=== PATIENT | female | born 1950 | race Caucasian/White ===

== ENCOUNTER 2017-07-28 11:46 | Outpatient (RCR) | payer MEDICARE, OTHER ==
[~2017-07-28 11:46] MED LIST: ACET-1966 PO; ACET500T68 PO; ALPR-1 PO; ANAS1TAB34 PO; ASPI-1471 PO; CALC-864 PO; CELE-1 PO; CHOL10005 PO; CHOL200074 PO; DEN60I SUBQ; LEVO75TA73 PO; LORA-1455 PO; LORA-636 PO; MULT1CAP59 PO; TRAZ-163 PO
== END 2017-07-31 14:51 | disposition home or self-care (01) ==
LOC: RAON 11:46
PROVIDERS: ATTEND Radiology Radiation Oncology
DX: C50.411 Malignant neoplasm of upper-outer quadrant of right female breast (principal); Z17.0 Estrogen receptor positive status [ER+]; E03.9 Hypothyroidism, unspecified; Z92.3 Personal history of irradiation; Z79.899 Other long term (current) drug therapy; Z87.891 Personal history of nicotine dependence
CPT/HCPCS: 99212

== ENCOUNTER → 2017-08-20 | Outpatient (CLI) | payer MEDICARE, OTHER ==
--- NOTE | 2017-08-20 14:12 | RADIOLOGY IMAGING REPORT ---
FACILITY: [facility] [place] PATIENT NAME: Mary Ann Borja : 1950 MR: [id number] V: [id number] EXAM DATE: ORDERING PHYSICIAN: LUCAS GU TECHNOLOGIST: Location: [facility] [place] Patient: Mary Ann Borja : 1950 Visit/Account:[id number] Date of Sevice: 08/20/2017 DEXA Scan Clinical history: Osteoporosis. Comparison: DEXA scan from 03/22/2015. LUMBAR SPINE: The bone mineral density (BMD) measured from L1-L4 correlates with a Z-score of -1.7 and a T-score of -3.8 which is osteoporosis as defined by the World Health Organization. The corresponding risk of f racture in the lumbar spine is 12-16 times increased compared with a young adult reference population . This value has increased by 3.7 % since the prior study. More than 5% change is considered signif icant. HIP: Bone mineral density (BMD) measured in the LEFT total hip region correlates with a Z-score -0.8 and a T-score of -2.3 which is osteopenia as defined by the World Health Organization. The corresponding risk of fracture in the hip is 46 times increased compared to a young adult reference population. Thi s value has increased by 2.4 % since the prior study. More than 5% change is considered significant. T score left femoral neck -2.1 Bone mineral density (BMD) measured in the Femoral Neck region measures 0.744 g/cm?. IMPRESSION: 1. Lumbar spine: Osteoporosis. There has been 3.7% increase in the bone mineral density since the p revious exam. 2. Left Total Hip: Osteopenia. There has been 2.4% increase in the bone mineral density since the p revious exam. 3. Femoral Neck: Bone Mineral Density is 0.744 g/cm? The next DEXA scan of this patient should include the following sites: L1-L4 and the left hip. FRAX? WHO Fracture Risk Assessment Tool link: <http://www.shef.ac.uk/FRAX/tool.jsp?locationValue=9> PLEASE NOTE: 1) The World Health Organization defines low BMD as follows: T-score Normal > -1 Osteopenia < -1 and > -2.5 Osteoporosis < -2.5 without fractures Established osteoporosis < -2.5 with fractures 2) In general, you may wish to consider: Diagnosis Treatment Follow-up DEXA Normal BMD Prevention 2-3 years Osteopenia Prevention/therapy 1-2 years Osteoporosis Therapy Yearly 3) Fracture risk estimated from the T-score is more accurate for vertebral fractures (often spontane ous) than for hip fractures. Report Dictated By: Sarahi Rader MD at 08/20/2017 2:06 PM Report E-Signed By: Sarahi Rader MD at 08/20/2017 2:08 PM WSN:[email or web address]
--- NOTE | 2017-08-21 13:59 | RADIOLOGY IMAGING REPORT ---
[place] [facility] [place] NAME: JAMES FONSECA : [id number] MR: [id number] V: [id number] EXAM DATE: [id number] ORDERING PHYSICIAN: LUCAS GU TECHNOLOGIST: Jannet Pena PROCEDURE:BILATERAL DIAGNOSTIC DIGITAL MAMMOGRAM WITH CAD ASSISTED INTERPRETATION & 3D TOMOSYNTHESIS COMPARISON:Prior mammograms 09/12/16, 09/12/15, 11/29/14, 10/13/13. INDICATIONS:HX BREAST CA, POSITIVE ESTROGEN RECEPTORS FINDINGS: Moderately dense heterogeneous fibroglandular tissue is seen throughout the breasts. The parenchymal pattern has remained stable allowing for difference in mammographic technique & patient positioning. There is no evidence of malignant appearing mass, malignant appearing calcifications or other secondary sign of malignancy in either breast. DIAGNOSTIC CATEGORY 1--NEGATIVE. RECOMMENDATIONS: ROUTINE MAMMOGRAM AND CLINICAL EVALUATION. IMPRESSION: BIRADS 1: Negative No significant abnormality is seen. Dictated by: Sarahi Rader M.D. on 08/20/2017 at 17:06 Transcribed by: MARIUSZ on 08/21/2017 at 9:42 Approved by: Sarahi Rader M.D. on 08/21/2017 at 13:58 [facility]
== END ==
LOC: MAMO 01:04
PROVIDERS: ATTEND Nurse Practitioner Family
DX: Z13.820 Encounter for screening for osteoporosis (principal); M81.0 Age-related osteoporosis without current pathological fracture; M85.80 Other specified disorders of bone density and structure, unspecified site
CPT/HCPCS: 77066; 77080

== ENCOUNTER 2018-07-28 12:00 | Outpatient (RCR) | payer MEDICARE, OTHER ==
[~2018-07-28 12:00] MED LIST changes: -TRAZ-163 PO; +TRAZ100T31 PO
[2018-07-28] MEDS ORDERED: TRAZ100T31 PO ×2 (12:21→12:49)
[2018-07-28 12:24] VITALS: BP 112/70
[2018-07-28] MEDS ORDERED: POLY17PO25 PO (12:49)
--- NOTE | 2018-07-29 03:22 | ONCOLOGY FOLLOW UP NOTE ---
EVENT DATE: July 28, 2018 CHIEF COMPLAINT/REASON FOR FOLLOWUP Patient is here for breast cancer surveillance. ONCOLOGY DIAGNOSES 1. Grade 2 invasive ductal carcinoma of the right breast, status post lumpectomy and sentinel lymph node procedure. Tumor was initially diagnosed 12/03/14 and was strongly ER positive, 98%; SC positive, 14.7%; HER2 of 2+. 2. Patient previously received radiation therapy to the right breast and supraclavicular fossa to 45 Gy in 25 fractions, with subsequent mixed photon- electron boost to the tumor excision site to 59.4 Gy. Radiation was completed 06/13/15. 3. Patient is on oral anastrazole 1 mg per day, directed by Dr. Núñez. INTERVAL HISTORY Mary Ann was seen for oncology surveillance appointment. Overall, she is doing well. She sees Dr. Acosta in May of each year and Dr. Núñez twice a year. She remains on Prolia directed by [facility]. She last had a mammogram approximately 11 months ago and is scheduled for another mammogram in approximately four weeks. She denies any headaches or new or persistent bone pain. She denies any breast pain. The last mammogram and DEXA scan reports were reviewed from August 2017 at [facility]. MEDICATIONS 1. Anastrazole 1 mg daily. 2. Aspirin 81 mg a day. 3. Calcium with vitamin D. 4. Celebrex 200 mg daily. 5. Trazodone 100 mg at bedtime. 6. MiraLAX daily. 7. Levothyroxine 75 mcg a day. ALLERGIES CODEINE. PAST MEDICAL HISTORY 1. Right breast carcinoma, 2014. 2. Osteoarthritis, 1997. 3. Hypothyroidism, 2005. PAST SURGICAL HISTORY 1. Cholecystectomy, 1999. 2. Tonsillectomy, 1953. SOCIAL HISTORY Nonsmoker. Mother at age 80. Father is alive. REVIEW OF SYSTEMS Comprehensive review of systems notable for occasional constipation and some mild musculoskeletal pain or stiffness. PHYSICAL EXAMINATION GENERAL: A pleasant 68-year-old female of medium build. VITAL SIGNS: Blood pressure 112/70, pulse 82. LYMPHATIC: No lymphadenopathy. LUNGS: Clear bilaterally. CV: Heart sounds regular. ABDOMEN: Soft. No gross organomegaly. BREASTS: Right breast examination reveals no dominant mass, some nonspecific tenderness on deep palpation of the upper outer quadrant only. Left breast exam was entirely benign. No gross organomegaly. NEURO: Intact. IMPRESSION No clinical evidence of breast cancer recurrence. PLAN Return to clinic in one year. I should see her in 13 months, which will be after her mammogram in 2020. I will potentially release her from the radiation oncology clinic at that time, since she is reliable regarding followup with other providers. Overall, I am pleased with her course to date. VLAD
== END 2018-09-18 12:48 | disposition home or self-care (01) ==
LOC: RAON 12:00
PROVIDERS: ATTEND Radiology Radiation Oncology
DX: C50.911 Malignant neoplasm of unspecified site of right female breast (principal); Z17.0 Estrogen receptor positive status [ER+]; Z79.811 Long term (current) use of aromatase inhibitors

== ENCOUNTER → 2018-08-21 | Outpatient (CLI) | payer MEDICARE, OTHER ==
[~2018-08-21] MED LIST changes: +POLY17PO25 PO
--- NOTE | 2018-08-25 10:08 | RADIOLOGY IMAGING REPORT ---
FACILITY: [facility] - [place] PATIENT NAME: JAMES FONSECA : [id number] MR: [id number] V: [id number] EXAM DATE: [id number] ORDERING PHYSICIAN: GAY GRAHAM TECHNOLOGIST: Ally Alan PROCEDURE:BILATERAL DIGITAL SCREENING MAMMOGRAM WITH CAD ASSISTED INTERPRETATION & 3D TOMOSYNTHESIS COMPARISON:Prior mammograms 08/20/17, 09/12/16, 09/12/15, 11/29/14, 10/13/13. INDICATIONS:SCREENING FINDINGS: The patient gives a history of a prior Right lumpectomy with radiation therapy in 2014. The breasts are heterogeneously dense which can obscure small masses. There is a mild area of architectural distortion in the upper outer quadrant of the Right breast in the previous lumpectomy site that appears relatively stable. The remainder of the parenchymal pattern has likewise remained stable allowing for difference in mammographic technique & patient positioning. DIAGNOSTIC CATEGORY 2--BENIGN FINDING. RECOMMENDATIONS: ROUTINE MAMMOGRAM AND CLINICAL EVALUATION. IMPRESSION: BIRADS 2: Benign finding. No significant abnormality is seen. Dictated by: Sarahi Rader M.D. on 08/21/2018 at 10:22 Transcribed by: MARIUSZ on 08/21/2018 at 14:18 Approved by: Sarahi Rader M.D. on 08/25/2018 at 10:07 [facility]
== END ==
LOC: MAMO 00:42
PROVIDERS: ATTEND Specialist
DX: Z12.31 Encounter for screening mammogram for malignant neoplasm of breast (principal); Z85.3 Personal history of malignant neoplasm of breast
CPT/HCPCS: 77063; 77067